=== PATIENT | male | born 1980 | race Two or more races ===

== ENCOUNTER 2025-09-07 22:27 | Emergency (ER) | payer OTHER ==
[~2025-09-07] VITALS: Ht 180.3 cm; Wt 77.1 kg
[2025-09-07] MEDS ORDERED: KETOROLAC TROMETHAMINE 30 MG VIAL IM ONE (23:15)
[2025-09-07] MEDS ORDERED: DEXAMETHASONE SODIUM PHOSPHATE 4 MG/ML VIAL IM ONE (23:15)
[2025-09-07] MEDS ORDERED: ORPHENADRINE CITRATE 30 MG/ML AMPUL IM ONE (23:15)
[2025-09-07] MEDS ORDERED: DEXAMETHASONE SODIUM PHOSPHATE 4 MG/ML VIAL ONE (23:26)
[2025-09-07] MEDS ORDERED: ORPHENADRINE CITRATE 30 MG/ML AMPUL ONE (23:26)
[2025-09-07] MEDS ORDERED: KETOROLAC TROMETHAMINE 30 MG VIAL ONE (23:26)
[2025-09-08] MEDS ORDERED: MEDROLPACK PO (00:42)
[2025-09-08] MEDS ORDERED: KETO10TA2 PO (00:42)
[2025-09-08] MEDS ORDERED: NORFLEX100MG PO (00:42)
== END 2025-09-08 01:06 | disposition home or self-care (01) ==
LOC: ER 22:27
DX: M25.521 Pain in right elbow (principal)